=== PATIENT | female | born 1970 | race Caucasian/White ===

== ENCOUNTER 2021-08-27 11:07 | Emergency (ER) | payer BC ==
[2021-08-27 11:16] LABS: Urine Blood Negative (Negative); Urine Glucose 2+ (Negative); Urine Protein Negative (Negative); Urine Specific Gravity 1.015 (1.005-1.030); Urine pH 5.5 (5.0-7.0)
[2021-08-27 12:00] LABS: Absolute Lymphocytes (CBC) 3.4 K/uL (0.7-4.9); Hematocrit 44.7 % (36.0-45.0); Lymphocytes % 24.5 % (15.3-44.8); MPV 7.5 fL (7.6-11.3); RBC Red Blood Cell Count 5.57 M/uL (3.86-4.86)
[2021-08-27] MEDS ORDERED: NA CHLORIDE 0.9% 1,000 ML ONE (12:09)
[2021-08-27 12:15] LABS: Protime INR 1.09
[2021-08-27 12:17] LABS: Albumin 3.6 g/dL (3.4-5.0); Bilirubin Direct 0.2 mg/dL (0-0.2); Bilirubin Total 0.9 mg/dL (0.2-1.0); Potassium 3.3 mmol/L (3.5-5.1); Troponin High Sensitivity 6.1 pg/mL (<58.9)
--- NOTE | 2021-08-27 12:35 | RAD REPORT ---
EXAM DESCRIPTION: RAD - Chest Single View - 08/27/2021 11:57 am CLINICAL HISTORY: near syncope COMPARISON: None TECHNIQUE: AP portable chest image was obtained 08/27/2021 11:57 am in supine position. FINDINGS: Lungs are clear. Heart and vasculature are normal. No measurable pleural effusion and no p neumothorax. No acute bony abnormality seen. No acute aortic findings suspected. IMPRESSION: No acute cardiopulmonary process.
--- NOTE | 2021-08-27 13:12 | RAD REPORT ---
EXAM DESCRIPTION: CT - Abdomen Pelvis W Contrast - 08/27/2021 12:54 pm CLINICAL HISTORY: ABD PAIN COMPARISON: No comparisons TECHNIQUE: Biphasic, helical CT imaging of the abdomen and pelvis was performed following 100 ml non -ionic IV contrast. No oral contrast administered. All CT scans are performed using dose optimization technique as appropriate and may include automated exposure control or mA/KV adjustment according to patient size. FINDINGS: No suspicious findings in the lung bases. The liver, spleen, and pancreas show no suspicious findings. Gallbladder is absent. No biliary tree d ilatation. Symmetric renal function is seen with no hydronephrosis or suspicious renal mass. No pyelonephritis o r acute parenchymal process. No bladder abnormalities. No adrenal abnormalities. No uterine or ovaria n abnormality seen. Tubal occlusive devices are in place in the proximal portion of each fallopian tu be. Fluid is present in a nondilated stomach. No gastric wall thickening or mass lesion identifiable. No small bowel abnormality seen. Appendicitis is not suspected. Moderately large stool volume is present filling but not dilating the entirety of the colon. Sigmoid colon is quite redundant. No acute colon process is identifiable. No free air, free fluid or inflammatory stranding. No hernia, mass or bulky lymphadenopathy. Bony degenerative changes are present. IMPRESSION: Contrast enhanced CT abdomen and pelvis showing no acute or emergent finding.
[2021-08-27 14:51] LABS: SARS-COV-2 RT PCR NEGATIVE (NEGATIVE)
--- NOTE | 2021-08-27 15:55 | EDPHYS ---
Physician Documentation [facility] Name: Halley Madrid Age: 51 yrs Sex: Female : 1970 Arrival Date: 08/27/2021 Time: 11:15 Bed 27 Private MD: ED Physician Peyman Garduno HPI: 08/27 14:02 This 51 yrs old Female presents to ER via EMS with complaints of Near syncope. rn 14:02 The patient has experienced near-syncope. Onset: The symptoms/episode began/occurred rn just prior to arrival. Duration: This was a single episode. Associated injury: The patient did not suffer any apparent associated injury. Associated signs and symptoms: Pertinent positives: diarrhea, lightheadedness, Pertinent negatives: chest pain, seizure, shortness of breath, vomiting. Current symptoms: Generalized weakness. The patient has not experienced similar symptoms in the past. The patient has not recently seen a physician. Patient reports went to work feeling fine this morning. [place] like needed to use the bathroom but when got there felt lightheaded and dizzy went down to the ground but does not think had a full syncopal episode. Rested for a while and eventually felt better. Denies any preceding chest pain or shortness of breath. Did not feel ill this morning. Denies fever or cough. Does report generalized weakness, abdominal cramping and diarrhea. No blood in stools.. 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 - Social history:: Smoking status: Patient/guardian denies using. - Family history:: not pertinent. - Hospitalizations: : No recent hospitalization is reported. ROS: 14:02 Constitutional: Negative for fever, chills, and weight loss, Eyes: Negative for injury, rn pain, redness, and discharge, ENT: Negative for injury, pain, and discharge, Neck: Negative for injury, pain, and swelling, Cardiovascular: Negative for chest pain, palpitations, and edema, Respiratory: Negative for shortness of breath, cough, wheezing, and pleuritic chest pain, Abdomen/GI: Positive for abdominal pain and diarrhea Back: Negative for injury and pain, : Negative for injury, bleeding, discharge, and swelling, MS/Extremity: Negative for injury and deformity, Skin: Negative for injury, rash, and discoloration, Neuro: Negative for headache, numbness, tingling, and seizure. Exam: 14:02 Constitutional: This is a well developed, well nourished patient who is awake, alert, rn and in no acute distress. Head/Face: Normocephalic, atraumatic. Eyes: Periorbital areas with no swelling, redness, or edema. Cardiovascular: Regular rate and rhythm. No pulse deficits. Respiratory: No increased work of breathing, no retractions or nasal flaring. Abdomen/GI: Soft, non-tender Skin: Warm, dry MS/ Extremity: Pulses equal, no cyanosis. Neuro: Awake and alert, GCS 15, oriented to person, place, time, and situation. Cranial nerves II-XII grossly intact. Motor strength 5/5 in all extremities. Sensory grossly intact. Cerebellar exam normal. Vital Signs: 11:41 BP 145 / 64; Pulse 69; Resp 18; Temp 98.4(O); Pulse Ox 100% on R/A; ic1 12:04 BP 143 / 65; Pulse 71; Resp 18; Pulse Ox 100% on R/A; ic1 13:47 Pulse 70; Resp 18; Pulse Ox 99% ; ic1 16:07 BP 166 / 86; Pulse 78; Resp 16; Pulse Ox 100% on R/A; ic1 MDM: 11:17 Patient medically screened. rn 15:53 Differential Diagnosis: cardiac arrhythmia, emotional response, idiopathic syncope, rn vasovagal episode, COVID, dehydration. Data reviewed: vital signs, nurses notes, lab test result(s), EKG, radiologic studies, plain films, and as a result, I will discharge patient. Counseling: I had a detailed discussion with the patient and/or guardian regarding: the historical points, exam findings, and any diagnostic results supporting the discharge/admit diagnosis, lab results, radiology results, the need for outpatient follow up, to return to the emergency department if symptoms worsen or persist or if there are any questions or concerns that arise at home. Response to treatment: the patient's symptoms have markedly improved after treatment, and as a result, I will discharge patient. Special discussion: I discussed with the patient/guardian in detail that at this point there is no indication for admission to the hospital. It is understood, however, that if the symptoms persist or worsen the patient needs to return immediately for re-evaluation. ED course: Patient improved with just IV fluids. Stable vital signs. No acute findings on blood/EKG/CAT scan. COVID-negative. Patient states undergoing a lot of stress and just heard some bad news prior to going to the bathroom about a family member. Could be stress reaction versus vasovagal episode versus early viral infection given feeling like diarrhea and abdominal issues with negative CAT scan. Recommend retesting of COVID if symptoms worsen and given return precautions. 08/27 11:16 Order name: Urine Dipstick-Ancillary; Complete Time: 11:18 EDMS 08/27 11:20 Order name: Basic Metabolic Panel; Complete Time: 12:24 rn 08/27 11:20 Order name: CBC with Diff; Complete Time: 12:24 rn 08/27 11:20 Order name: LFT's; Complete Time: 12:24 rn 08/27 11:20 Order name: NT PRO-BNP; Complete Time: 12:24 rn 08/27 11:20 Order name: PT-INR; Complete Time: 12:24 rn 08/27 11:20 Order name: Troponin HS; Complete Time: 12:24 rn 08/27 11:20 Order name: XRAY Chest (1 view); Complete Time: 13:16 rn 08/27 11:20 Order name: EKG; Complete Time: 11:20 rn 08/27 11:20 Order name: Cardiac monitoring; Complete Time: 12:03 rn 08/27 11:20 Order name: EKG - Nurse/Tech; Complete Time: 12:41 rn 08/27 11:20 Order name: COVID-19/FLU A+B (Document "Date of Onset" if Symptomatic); Complete Time: rn 15:02 08/27 11:40 Order name: CT Abd/Pelvis - IV Contrast Only; Complete Time: 13:16 rn 08/27 11:20 Order name: IV Saline Lock; Complete Time: 12:03 rn 08/27 11:20 Order name: Labs collected and sent; Complete Time: 12:03 rn 08/27 11:20 Order name: O2 Per Protocol; Complete Time: 12:03 rn 08/27 11:20 Order name: O2 Sat Monitoring; Complete Time: 12:03 rn Administered Medications: 12:09 Drug: NS 0.9% 1000 ml Route: IV; Rate: 1000 ml; Site: right hand; ic1 Disposition Summary: 08/27/21 15:54 Discharge Ordered Location: Home rn Problem: new rn Symptoms: have improved rn Condition: Stable rn Diagnosis - Syncope Near rn Followup: rn - With: Private Physician - When: As needed - Reason: Recheck today's complaints, Re-evaluation by your physician Discharge Instructions: - Discharge Summary Sheet rn - Near-Syncope rn Forms: - Medication Reconciliation Form rn - Thank You Letter rn - Antibiotic rn medical inpatient services - Prescription Opioid Use rn Signatures: Dispatcher [employer] Peyman Elaine MD MD rn Creggett, Iesha, RN RN ic1
--- NOTE | 2021-08-27 15:55 | ER ---
Nurse's Notes [facility] Name: Halley Madrid Age: 51 yrs Sex: Female : 1970 Arrival Date: 08/27/2021 Time: 11:15 Bed 27 Private MD: Diagnosis: Syncope Near Presentation: 08/27 11:41 Chief complaint: EMS states: Per EMS, pt brought in from work for near syncopal episode ic1 while walking to the bathroom. 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 Pt states she ate breakfast as usual this AM. Denies dizziness. C/o fatigue. Coronavirus screen: Vaccine status: Client denies travel out of the [place] in the last 14 days. Client presents with at least one sign or symptom that may indicate coronavirus-19. Standard/surgical mask placed on the client. Ebola Screen: Patient negative for fever greater than or equal to 101.5 degrees Fahrenheit, and additional compatible Ebola Virus Disease symptoms Patient denies exposure to infectious person. Patient denies travel to an Ebola-affected area in the 21 days before illness onset. No symptoms or risks identified at this time. Initial Sepsis Screen: Does the patient meet any 2 criteria? No. Patient's initial sepsis screen is negative. Does the patient have a suspected source of infection? No. Patient's initial sepsis screen is negative. Risk Assessment: Do you want to hurt yourself or someone else? Patient reports no desire to harm self or others. Onset of symptoms. 11:41 Method Of Arrival: EMS: [facility] ic1 11:41 Acuity: VIBHA 3 ic1 Triage Assessment: 11:41 General: Appears in no apparent distress. uncomfortable, Behavior is calm, cooperative. ic1 Pain: Denies pain. EENT: No deficits noted. Neuro: No deficits noted. Cardiovascular: No deficits noted. Respiratory: No deficits noted. GI: Reports lower abdominal pain, upper abdominal pain, constipation. : No deficits noted. Derm: No deficits noted. Musculoskeletal: Reports Generalized weakness, dizziness, and fatigue. 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 - Social history:: Smoking status: Patient/guardian denies using. - Family history:: not pertinent. - Hospitalizations: : No recent hospitalization is reported. Screenin:04 Abuse screen: Denies threats or abuse. Denies injuries from another. Nutritional ic1 screening: No deficits noted. Tuberculosis screening: No symptoms or risk factors identified. Fall Risk None identified. Exposure risk/Travel Screening: None identified. Assessment: 12:04 General: Appears in no apparent distress. uncomfortable, Behavior is calm, cooperative. ic1 Pain: Denies pain. Neuro: No deficits noted. Cardiovascular: No deficits noted. Respiratory: No deficits noted. GI: Reports lower abdominal pain, upper abdominal pain, constipation. : No deficits noted. EENT: No deficits noted. Derm: No deficits noted. Musculoskeletal: No deficits noted. 12:40 Reassessment: Pt EKG done by this RN and given to ED physician. Pt tolerated. ic1 12:42 Reassessment: Pt transported to CT via wheelchair. In NAD. VSS. ic1 13:47 Reassessment: Patient appears in no apparent distress at this time. No changes from ic1 previously documented assessment. Daughter at pt's bedside. Patient denies pain at this time. Vital Signs: 11:41 BP 145 / 64; Pulse 69; Resp 18; Temp 98.4(O); Pulse Ox 100% on R/A; ic1 12:04 BP 143 / 65; Pulse 71; Resp 18; Pulse Ox 100% on R/A; ic1 13:47 Pulse 70; Resp 18; Pulse Ox 99% ; ic1 16:07 BP 166 / 86; Pulse 78; Resp 16; Pulse Ox 100% on R/A; ic1 ED Course: 11:15 Patient arrived in ED. ic1 11:17 Peyman Garduno MD is Attending Physician. rn 11:41 Arm band placed on right wrist. ic1 11:57 XRAY Chest (1 view) In Process Unspecified. EDMS 12:01 Triage completed. ic1 12:03 COVID-19/FLU A+B (Document "Date of Onset" if Symptomatic) Sent. ic1 12:03 Basic Metabolic Panel Sent. ic1 12:04 Patient has correct armband on for positive identification. Placed in gown. Bed in low ic1 position. Call light in reach. Side rails up X2. 12:04 CBC with Diff Sent. ic1 12:04 LFT's Sent. ic1 12:04 NT PRO-BNP Sent. ic1 12:04 PT-INR Sent. ic1 12:04 Troponin HS Sent. ic1 12:04 Inserted saline lock: 20 gauge in right hand, using aseptic technique. Blood collected. ic1 12:54 CT Abd/Pelvis - IV Contrast Only In Process Unspecified. EDMS 16:18 IV discontinued, intact, bleeding controlled, No redness/swelling at site. Pressure ic1 dressing applied. Administered Medications: 12:09 Drug: NS 0.9% 1000 ml Route: IV; Rate: 1000 ml; Site: right hand; ic1 Outcome: 15:54 Discharge ordered by . rn 16:09 Discharged to home ambulatory, with family. ic1 16:09 Condition: stable 16:09 Discharge instructions given to patient, Instructed on discharge instructions, follow up and referral plans. Demonstrated understanding of instructions, follow-up care. 16:33 Patient left the ED. ic1 Signatures: Dispatcher [employer] Peyman Elaine MD MD rn Creggett, Iesha, RN RN ic1
[2021-08-27 16:38] VITALS: TEMP 98.4
[2021-08-27 16:42] VITALS: BP 166/86; O2SAT 100
== END 2021-08-27 16:33 | disposition home or self-care (01) ==
LOC: ER 11:07
DX: R55 Syncope and collapse (principal); Z20.822 Contact with and (suspected) exposure to COVID-19
CPT/HCPCS: 85025; 80048; 36415; 85610; 80076; 81003; 84484; 83880; 0240U; 74177; 71045; Q9967; J7030; 93005